=== PATIENT | female | born 1985 | race Caucasian/White ===

== ENCOUNTER 2018-05-19 02:10 | Inpatient (IN) | payer MEDICAID ==
[2018-05-19] MEDS ORDERED: LACTATED RINGER'S 1,000 ML IV (02:22)
[2018-05-19] MEDS ORDERED: OXYTOCIN 30 UNITS/LR 500 ML IV ×2 (02:30→06:00)
[2018-05-19] MEDS ORDERED: METHYLERGONOVINE 0.2 MG INJ IM ×2 (02:30→06:00)
[2018-05-19] MEDS ORDERED: MISOPROSTOL 200 MCG TAB PR ×2 (02:30→06:00)
[2018-05-19] MEDS ORDERED: BUTORPHANOL 2 MG INJ IV (02:30)
[2018-05-19] MEDS ORDERED: CARBOPROST 250 MCG INJ IM ×2 (02:30→06:00)
[2018-05-19] MEDS ORDERED: IBUPROFEN 600 MG TAB PO (02:30)
[2018-05-19] MEDS ORDERED: LIDOCAINE 1% (MPF) 30 ML INJ INJ (02:30)
[2018-05-19] MEDS ORDERED: AMPICILLIN 2 GM/NS (PMX) 100 ML (02:44)
[2018-05-19] MEDS: LACTATED RINGER'S 1,000 ML IV (02:47)
[2018-05-19] MEDS: AMPICILLIN 2 GM/NS (PMX) 100 ML IV (02:48)
[2018-05-19 02:56] LABS: ADD MAN DIFF? NO
[2018-05-19 02:59] LABS: BASOPHIL # 0.1 10^3/ul (0.0-0.1); BASOPHILS % 0.7 % (0.0-2.0); EOSINOPHILS # 0.1 10^3/ul (0.0-0.5); EOSINOPHILS % 1.4 % (0.0-7.0); HEMATOCRIT 35.5 % (37.0-47.0); HEMOGLOBIN 11.8 g/dl (12.0-16.0); LYMPHOCYTES # 2.3 10^3/ul (0.8-2.9); LYMPHOCYTES % 23.8 % (15.0-51.0); MEAN CORPUSCULAR HEMOGLOBIN 27.7 pg (29.0-33.0); MEAN CORPUSCULAR HGB CONC 33.2 g/dl (32.0-37.0); MEAN CORPUSCULAR VOLUME 83.3 fl (82.0-101.0); MEAN PLATELET VOLUME 9.5 fl (7.4-10.4); MONOCYTE # 1.5 10^3/ul (0.3-0.9); MONOCYTES % 14.9 % (0.0-11.0); NEUTROPHIL # 5.6 10^3/ul (1.6-7.5); NEUTROPHILS % 57.7 % (39.0-77.0); PLATELET COUNT 347 10^3/UL (140-415); RED BLOOD COUNT 4.26 10^6/ul (4.20-5.40); RED CELL DISTRIBUTION WIDTH 14.8 % (11.5-14.5)
[2018-05-19 02:59] LABS: WHITE BLOOD COUNT 9.8 10^3/ul (4.8-10.8)
[2018-05-19 03:21] LABS: INR 0.89; PROTIME 12.2 Sec (11.9-14.9)
[2018-05-19 03:22] LABS: PARTIAL THROMBOPLASTIN TIME 27.2 Sec (23.0-35.0)
[2018-05-19 03:46] LABS: HEPATITIS B SURFACE ANTIGEN NEGATIVE (NEGATIVE)
[2018-05-19] MEDS: OXYTOCIN 30 UNITS/LR 500 ML IV ×4 (05:43→11:50)
[2018-05-19] MEDS: LACTATED RINGER'S 1,000 ML IV* ×3 (05:52→21:52)
[2018-05-19] MEDS: IBUPROFEN 600 MG TAB PO ×3 (06:13→17:54)
[2018-05-19] MEDS ORDERED: AMPICILLIN 1 GM/NS (PMX) 50 ML IV (06:30)
[2018-05-19] MEDS: HYDROCODONE/APAP (5/325) TAB PO (08:30)
[2018-05-19] MEDS: LANOLIN HPA 1 PKT TOP (11:47)
[2018-05-19 16:11] LABS: RAPID PLASMA REAGIN NONREACTIVE (NR)
[2018-05-20] MEDS: IBUPROFEN 600 MG TAB PO ×5 (00:27→23:47)
[2018-05-20] MEDS: LACTATED RINGER'S 1,000 ML IV* ×3 (05:52→21:52)
[2018-05-20 08:56] LABS: ADD MAN DIFF? NO
[2018-05-20 09:01] LABS: BASOPHIL # 0.1 10^3/ul (0.0-0.1); BASOPHILS % 0.6 % (0.0-2.0); EOSINOPHILS # 0.1 10^3/ul (0.0-0.5); HEMATOCRIT 36.6 % (37.0-47.0); HEMOGLOBIN 11.8 g/dl (12.0-16.0); LYMPHOCYTES # 3.5 10^3/ul (0.8-2.9); LYMPHOCYTES % 25.4 % (15.0-51.0); MEAN CORPUSCULAR HEMOGLOBIN 26.9 pg (29.0-33.0); MEAN CORPUSCULAR HGB CONC 32.2 g/dl (32.0-37.0); MEAN CORPUSCULAR VOLUME 83.6 fl (82.0-101.0); MEAN PLATELET VOLUME 9.6 fl (7.4-10.4); MONOCYTE # 1.2 10^3/ul (0.3-0.9); MONOCYTES % 8.5 % (0.0-11.0); NEUTROPHIL # 8.9 10^3/ul (1.6-7.5); NEUTROPHILS % 63.9 % (39.0-77.0); PLATELET COUNT 366 10^3/UL (140-415); RED BLOOD COUNT 4.38 10^6/ul (4.20-5.40); RED CELL DISTRIBUTION WIDTH 15.2 % (11.5-14.5)
[2018-05-20] MEDS: INFLUENZA VIRUS VACCINE 0.5 ML (DISPENSING) IM* (10:00)
[2018-05-21] MEDS: IBUPROFEN 600 MG TAB PO ×2 (05:47→12:56)
[2018-05-21] MEDS: LACTATED RINGER'S 1,000 ML IV* ×2 (05:52→13:52)
[2018-05-21] MEDS: DIPHTH/TET/ACEL PERTUSS (ADULT) 0.5 ML VIAL IM* (09:00)
[2018-05-21] MEDS: LANOLIN HPA 1 PKT TOP (16:50)
== END 2018-05-21 17:00 | disposition home or self-care (01) | DRG 807 ==
LOC: OBT 02:10 → L-D 02:10 → OBT 02:20 → L-D 02:20 → PP1 07:45
PROVIDERS: Obstetrics & Gynecology
PROC: 10E0XZZ Delivery of Products of Conception, External Approach (ICD-10-PCS; principal; 2018-05-19)
PROC: 3E033VJ Introduction of Other Hormone into Peripheral Vein, Percutaneous Approach (ICD-10-PCS; 2018-05-19)
DX: O69.81X0 Labor and delivery complicated by cord around neck, without compression, not applicable or unspecified (principal); Z37.0 Single live birth; Z3A.39 39 weeks gestation of pregnancy
CPT/HCPCS: 85025; 85610; 85730; 86592; 86850; 86900; 86901; 87340; 90686; 99464